=== PATIENT | female | born 2000 | race Two or more races ===

== ENCOUNTER 2024-01-04 13:41 | Emergency (ER) | payer MEDICAID, OTHER ==
[~2024-01-04] VITALS: Ht 157.5 cm; Wt 92.1 kg
[2024-01-04] MEDS ORDERED: IBUP1TAB5 PO (17:26)
[2024-01-04 17:47] VITALS: BP 114/76; PULSE 89; RESP 16; O2SAT 99
[2024-01-04] MEDS: IBUPROFEN 600 MG TAB PO ONE (17:47)
[2024-01-04 18:17] VITALS: TEMP 98.2
== END 2024-01-04 18:18 | disposition home or self-care (01) ==
LOC: ER 13:41
DX: S93.402A Sprain of unspecified ligament of left ankle, initial encounter (principal); S93.602A Unspecified sprain of left foot, initial encounter; Z79.1 Long term (current) use of non-steroidal anti-inflammatories (NSAID); X50.1XXA Overexertion from prolonged static or awkward postures, initial encounter; Y93.89 Activity, other specified; Y92.89 Other specified places as the place of occurrence of the external cause; Y99.8 Other external cause status
CPT/HCPCS: 29515; 73610; 73630

== ENCOUNTER 2024-07-13 14:10 | Emergency (ER) | payer MEDICAID ==
[~2024-07-13] VITALS: Ht 160 cm; Wt 92.7 kg
[~2024-07-13 14:10] MED LIST: IBUP1TAB5 PO
[2024-07-13 15:18] LABS: Urine Bacteria None Seen /hpf (None Seen)
[2024-07-13 15:45] LABS: Urine Amorphous Crystal MOD /hpf (None Seen); Urine Blood Negative /uL (Negative); Urine Clarity Ex.Turbid (Clear); Urine Color Light-Orange (Yellow); Urine Mucus FEW (None Seen); Urine Protein, UAD 1+ (Negative); Urine Specific Gravity 1.032 (1.001-1.035); Urine Urobilinogen Normal (Negative); Urine WBC 70 /hpf (0 - 5)
[2024-07-13 18:52] VITALS: BP 130/70; PULSE 106; RESP 16; TEMP 98.5; O2SAT 99
== END 2024-07-13 18:54 | disposition home or self-care (01) ==
LOC: ER 14:10
DX: O23.41 Unspecified infection of urinary tract in pregnancy, first trimester (principal); N39.0 Urinary tract infection, site not specified; Z3A.01 Less than 8 weeks gestation of pregnancy
CPT/HCPCS: 81001; 81025

== ENCOUNTER 2024-07-28 18:10 | Emergency (ER) | payer MEDICAID ==
[~2024-07-28] VITALS: Ht 157.5 cm; Wt 91.0 kg
[2024-07-28 18:36] VITALS: BP 131/86; PULSE 97; RESP 16; TEMP 98.9; O2SAT 97
[2024-07-28 18:50] LABS: Urine Bacteria None Seen /hpf (None Seen)
[2024-07-28 19:21] LABS: Urine Blood Negative /uL (Negative); Urine Clarity Clear (Clear); Urine Color Yellow (Yellow); Urine Mucus FEW (None Seen); Urine Protein, UAD Negative (Negative); Urine Specific Gravity 1.024 (1.001-1.035); Urine Urobilinogen Normal (Negative); Urine WBC 5 /hpf (0 - 5)
[2024-07-28] MEDS ORDERED: ACET500T58 PO (19:56)
[2024-07-28] MEDS ORDERED: CEPH500C PO (19:56)
[2024-07-28 20:08] LABS: COVID19 ANTIGEN SOFIA FIA NEGATIVE (NEGATIVE)
[2024-07-28 20:09] LABS: Rapid Influenza A Negative (Negative); Rapid Influenza B Negative (Negative)
[2024-07-28] MEDS: cefTRIAXone SOD 1,000 MG VL IM ONE (20:20)
[2024-07-28] MEDS: LIDOCAINE 1% HCL (LOCAL ANESTH.) INJ 20ML MDV ID ONE (20:21)
== END 2024-07-28 20:25 | disposition home or self-care (01) ==
LOC: ER 18:10
DX: O23.41 Unspecified infection of urinary tract in pregnancy, first trimester (principal); Z3A.01 Less than 8 weeks gestation of pregnancy; Z79.899 Other long term (current) drug therapy; Z20.822 Contact with and (suspected) exposure to COVID-19
CPT/HCPCS: 36415; 81001; 81025; 87426; 87804; 96372; 99283; J0696; J2001

== ENCOUNTER 2024-09-04 14:52 | Emergency (ER) | payer MEDICAID ==
[~2024-09-04 14:52] MED LIST changes: +ACET500T58 PO; +CEPH500C PO
[2024-09-04 15:53] LABS: Urine Bacteria FEW /hpf (None Seen); Urine Blood Negative /uL (Negative); Urine Clarity Turbid (Clear); Urine Color Yellow (Yellow); Urine Hyaline Cast FEW /lpf (0 - 2); Urine Mucus MANY (None Seen); Urine Protein, UAD 1+ (Negative); Urine Specific Gravity 1.028 (1.001-1.035); Urine Urobilinogen Normal (Negative); Urine WBC 120 /hpf (0 - 5)
[2024-09-04 16:13] VITALS: BP 118/86; PULSE 88; RESP 15; TEMP 97.2; O2SAT 96
[2024-09-04] MEDS: ONDANSETRON ODT 4 MG TAB PO ONE (16:13)
[2024-09-04] MEDS ORDERED: NITR-87 PO (16:22)
[2024-09-04] MEDS ORDERED: ZOFR4T PO (16:22)
[2024-09-04] MEDS: NITROFURANTOIN 100 mg CAP PO ONE (16:35)
== END 2024-09-04 16:41 | disposition home or self-care (01) ==
LOC: ER 14:52
DX: O23.41 Unspecified infection of urinary tract in pregnancy, first trimester (principal); N39.0 Urinary tract infection, site not specified; Z3A.12 12 weeks gestation of pregnancy
CPT/HCPCS: 81001; 99283; Q0162

== ENCOUNTER 2025-02-25 01:58 | Observation (INO) | payer MEDICAID ==
[~2025-02-25] VITALS: Ht 157.5 cm; Wt 99.8 kg
[~2025-02-25 01:58] MED LIST changes: +NITR-87 PO; +ZOFR4T PO
[2025-02-25] MEDS: TERBUTALINE SULFATE 1 MG/ML 1ML VIAL SC SCH (02:33)
[2025-02-25] MEDS: LACTATED RINGER'S 1,000 ML IV SCH (02:35)
[2025-02-25] MEDS: BETAMETHASONE ACET (30mg/5ml) 5ml Vial 6mg/ml IM SCH (02:36)
[2025-02-25] MEDS: LACTATED RINGER'S 1,000 ML IV ONE (02:52)
[2025-02-25] MEDS ORDERED: NIFEdipine 10 MG CAP PO ONE (03:15)
[2025-02-25] MEDS: NIFEdipine 10 MG CAP PO ONE (03:23)
--- NOTE | 2025-02-25 03:30 | DVH ---
LIMITED OB ULTRASOUND > 14 WKS: HISTORY: vaginal bleeding TECHNIQUE: Multiple real-time grayscale images of the gravid uterus with duplex Doppler color flow an d M-mode spectral analysis. FINDINGS: IUP single live fetus at 34 weeks 6 days based on composite averages of the BPD, head circumference, abdominal circumference and femur length Estimated weight 2697 grams heart rate 138 beats per minute GUMARO 18 cm Cervix 3.8 cm, closed Cephalic Presentation Anterior placenta without previa or abnormality Biophysical profile: 8 of 8 IMPRESSION: 1. IUP single live fetus at 34 weeks 6 days AUA corresponding to an RHETT of 04/02/2025. 2. BPP: 8 of 8
[2025-02-25] MEDS ORDERED: PREN-96 PO (03:42)
--- NOTE | 2025-02-25 07:13 | DVHDS2 ---
Physician Discharge Progress N Final Diagnosis: PTL Operations or Procedures: Operations or Procedures S: 25yo IUP@33+wks presents to OB triage via ambulance. Pt had a gush of vaginal bleeding down legs at 0100. Also c/o UCs every 6 minutes that started at that time. PNC: [facility], [place] [facility] [place]. PNC complicated by GDM, A1. OB hx: NSVDx2, denies PTL/PTD. O: VSS NST reactive TOCO: initially UCs q2-4min, after treatment irregalr UCs and pt denies feeling them dry blood noted on her legs in triage no active vaginal bleeding seen Terbutaline SQ 3 doses, procardia 30mg PO, 2L LR IV fluid, betamethasone IM first dose given SVE by RN: /-2 A: 25yo IUP@33+wks PTL P: D/C home FKC/PTL precautions reviewed FOLLOW UP WITH YOUR PRIMARY OB FIRST THING TODAY IN THE MORNING 02/25/25. RETURN TO BIRTHPLACE AT 2:30PM FOR YOUR SECOND CELESTONE INJECTION. Dr. Petersen consulted, agrees with POC. Other Interventions Other Interventions [place] [address] Ph: [phone] DIAGNOSTIC IMAGING Diagnostic Imaging Report : [id number] Signed PATIENT: KENDRICK MEEKSACCT: [id number] UNIT: [id number] : 2000 LOC: [facility] ROOM / BED: TRIAGE1 / A AGE / SEX: 25 / F ADM STATUS: ADM IN SERVICE [id number] ORDERING PHYSICIAN: AJ GARCIA CNM PROCEDURE(s): BPP - BIOPHYSICAL PROFILE REASON: vaginal bleeding ORDER NUMBER(s): [id number], ACCESSION NUMBER(s): [id number] LIMITED OB ULTRASOUND > 14 WKS: HISTORY: vaginal bleeding TECHNIQUE: Multiple real-time grayscale images of the gravid uterus with duplex Doppler color flow and M-mode spectral analysis. FINDINGS: IUP single live fetus at 34 weeks 6 days based on composite averages of the BPD, head circumference, abdominal circumference and femur length Estimated weight 2697 grams heart rate 138 beats per minute GUMARO 18 cm Cervix 3.8 cm, closed Cephalic Presentation Anterior placenta without previa or abnormality Biophysical profile: 8 of 8 IMPRESSION: 1. IUP single live fetus at 34 weeks 6 days AUA corresponding to an RHETT of 05/0 07/2025. 2. BPP: 8 of 8 ATED BY: ZACH SALAS MD DICTATED DATE/TIME: 02/25/25327 SIGNED BY: ZACH SALAS MD SIGNED DATE/TIME: 02/25/25327 CC: Condition on Discharge: Stable Disposition: Home Discharge Instructions: Diet: Consistent carbohydrate Diet comment: Activity: See Comment Activity comment: pelvic rest Follow Up/Referral: FOLLOW UP WITH YOUR PRIMARY OB FIRST THING TODAY IN THE MORNING 02/25/25 TO FOLLOW UP. RETURN TO BIRTHPLACE AT 2:30PM FOR YOUR SECOND CELESTONE INJECTION. Medications: CONTINUE TAKING ALL CURRENT MEDICATIONS PREVIOUSLY PRESCRIBED BY YOUR PRIMARY OB. Follow Up Care: Specialist: FOLLOW UP WITH YOUR PRIMARY OB FIRST THING TODAY IN THE MORNING 02/25/25 TO FOLLOW UP. RETURN TO BIRTHPLACE AT 2:30PM FOR YOUR SECOND CELESTONE INJECTION. Discharge Statement: "Patient was advised to return to the ER or call 911 if any headaches, dizziness, shortness of breath, chest pain, abdominal pain, bleeding, fevers, or worsening of medical condition. Patient was counseled about treatment plan, medications, possible side effects, patientverbalized understanding. All questions were answered to the best of my ability. This discharge took greater then 30 minutes in planning, reviewing documentation, counseling the patient, and discussing with other team members." Visit Coding OBGYN Date of Service: Feb 25, 2025 Billing Provider: AJ GARCIA CNM SENIOR CASE MANAGER Common Visit Codes: 83580-SSSROCE OBS CARE (HIGH) SENIOR CASE MANAGER Procedure Codes: 21345-84- NON-STRESS TEST AJ GARCIA CNM Feb 25, 2025 07:12
[2025-02-25] MEDS ORDERED: BETAMETHASONE ACET (30mg/5ml) 5ml Vial 6mg/ml IM SCH (10:00)
== END 2025-02-25 04:24 | disposition home or self-care (01) ==
LOC: LDRP 01:58
PROVIDERS: ADMIT Obstetrics & Gynecology; ATTEND Obstetrics & Gynecology
DX: O60.03 Preterm labor without delivery, third trimester (principal); O24.419 Gestational diabetes mellitus in pregnancy, unspecified control; O46.93 Antepartum hemorrhage, unspecified, third trimester; Z3A.33 33 weeks gestation of pregnancy; Z79.899 Other long term (current) drug therapy; Z98.890 Other specified postprocedural states
CPT/HCPCS: 76805; 76818; 82948; 82962; 94760; 96360; 96361; 96372; G0378; J0702; J3105; 76819

== ENCOUNTER 2025-02-25 18:43 | Observation (INO) | payer MEDICAID ==
[~2025-02-25] VITALS: Ht 157.5 cm; Wt 98.0 kg
[~2025-02-25 18:43] MED LIST changes: +PREN-96 PO
[2025-02-25] MEDS: BETAMETHASONE ACET (30mg/5ml) 5ml Vial 6mg/ml IM ONE (19:08)
--- NOTE | 2025-03-02 14:18 | DVHDS2 ---
Physician Discharge Progress N Final Diagnosis: ptl 36wks Operations or Procedures: Operations or Procedures nst,sono Condition on Discharge: Good Disposition: Home Discharge Instructions: Diet: See Comment Diet comment: low carb low sugar Activity: Bed rest Follow Up/Referral: FOLLOW UP WITH YOUR PRIMARY OB IN [facility] Medications: CONTINUE TAKING ALL CURRENT MEDICATIONS PREVIOUSLY PRESCRIBED BY YOUR PRIMARY OB. Follow Up Care: Specialist: 1w Discharge Statement: "Patient was advised to return to the ER or call 911 if any headaches, dizziness, shortness of breath, chest pain, abdominal pain, bleeding, fevers, or worsening of medical condition. Patient was counseled about treatment plan, medications, possible side effects, patientverbalized understanding. All questions were answered to the best of my ability. This discharge took greater then 30 minutes in planning, reviewing documentation, counseling the patient, and discussing with other team members." Visit Coding OBGYN Date of Service: Feb 25, 2025 Billing Provider: KEYSHAWN MCKEON DO BULLET ASSEMBLY PRESS OPERATOR Common Visit Codes: 32763-[id number] OBS CARE (HIGH) BULLET ASSEMBLY PRESS OPERATOR Procedure Codes: 94822-51- NON-STRESS TEST KEYSHAWN MCKEON DO Mar 02, 2025 14:18
== END 2025-02-25 19:29 | disposition home or self-care (01) ==
LOC: LDRP 18:43
PROVIDERS: ADMIT Obstetrics & Gynecology; ATTEND Obstetrics & Gynecology
DX: O62.9 Abnormality of forces of labor, unspecified (principal); O99.891 Other specified diseases and conditions complicating pregnancy; M54.9 Dorsalgia, unspecified; Z3A.36 36 weeks gestation of pregnancy; Z79.899 Other long term (current) drug therapy
CPT/HCPCS: 59025; 81002; 94760; 96372; G0378